=== PATIENT | male | born 1990 | race Caucasian/White ===

== ENCOUNTER 2017-10-18 13:04 | Emergency (ER) | payer OTHER ==
[~2017-10-18] VITALS: Ht 182.9 cm; Wt 116.2 kg
[2017-10-18 15:35] LABS: APPEARANCE CLEAR ((CLEAR)); BILIRUBIN NEGATIVE; BLOOD NEGATIVE; COLOR STRAW ((YELLOW)); GLUCOSE (STRIP) NEGATIVE; KETONES NEGATIVE; LEUKOCYTES NEGATIVE; NITRITE NEGATIVE; PROTEIN (STRIP) NEGATIVE; SPECIFIC GRAVITY 1.008 (1.000-1.030); UCUL ADDED? NO; UROBILINOGEN 0.2 MG/DL (0.2-1.0)
[2017-10-18 16:10] VITALS: BP 139/67
== END 2017-10-18 16:10 | disposition home or self-care (01) ==
LOC: EME 13:04
PROVIDERS: Nurse Practitioner Family
DX: T75.4XXA Electrocution, initial encounter (principal); T23.122A Burn of first degree of single left finger (nail) except thumb, initial encounter; W86.1XXA Exposure to industrial wiring, appliances and electrical machinery, initial encounter; Y92.69 Other specified industrial and construction area as the place of occurrence of the external cause; Y99.0 Civilian activity done for income or pay; I45.4 Nonspecific intraventricular block; R94.31 Abnormal electrocardiogram [ECG] [EKG]
CPT/HCPCS: 81003; 93005; 99281; 99285